=== PATIENT | female | born 1960 | race Caucasian/White ===

== ENCOUNTER 2020-07-07 09:47 | Outpatient (NON) | payer BC, SELFPAY ==
[2020-07-07 22:07] LABS: SARS-CoV-2 RNA PCR Positive
== END 2020-07-07 09:48 ==
PROVIDERS: PCP Family Medicine; Visit Provider Family Medicine
DX: U07.1 COVID-19 (principal)
CPT/HCPCS: 87635; C9803; U0003

== ENCOUNTER → 2020-07-31 15:10 | Outpatient (CLI) | payer BC, SELFPAY ==
--- NOTE | ~2020-07-31 | XR_ITS ---
EXAMINATION: XR chest 2V DATE: 07/31/2020 15:26 INDICATION: Acute bronchitis, unspecified. Cough. Shortness of breath. TECHNIQUE: Frontal and lateral views of the chest were obtained. COMPARISON: Chest 2 views 07/13/2019, chest CT 07/14/2019 FINDINGS: The chest demonstrates clear lungs without pneumonia, pleural effusion, or pneumothorax. Th e heart size is normal. IMPRESSION: 1. No acute cardiopulmonary disease. Reviewed, dictated and finalized at location A. 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
== END ==
PROVIDERS: PCP Family Medicine; Visit Provider Family Medicine
DX: J20.9 Acute bronchitis, unspecified (principal)
CPT/HCPCS: 71046

== ENCOUNTER 2021-01-10 07:35 | Outpatient (CLI) | payer BC, SELFPAY | END 2021-01-10 07:36 | disposition home or self-care (01) | PROVIDERS: PCP Family Medicine; Visit Provider Internal Medicine Gastroenterology | DX: R19.7 Diarrhea, unspecified (principal) | CPT/HCPCS: 87045; 87046; 87427 ==

== ENCOUNTER 2021-04-17 12:56 | Outpatient (CLI) | payer BC, SELFPAY ==
--- NOTE | ~2021-04-17 | US_ITS ---
EXAMINATION: US carotid duplex BI DATE: 04/17/2021 13:29 INDICATION: Unspecified visual disturbance. TECHNIQUE: Grayscale, color Doppler, and pulsed Doppler images of the cervical carotid arteries were obtained. The degree of vessel stenosis is placed in one of the following categories: normal, <50%, 5 0-69%, >=70% but less than near-occlusion, near-occlusion, or total occlusion. Note that percent sten osis relative to normal distal artery lumen diameter is indirectly measured from velocity measurement s as described by Topher, et al. Radiology 2003; 229:[id number]. COMPARISON: None. FINDINGS: RIGHT: The right common carotid artery (CCA) peak systolic velocity (PSV) is 86 cm/s. The right internal car otid artery (ICA) PSV is 85 cm/s. The right ICA end-diastolic velocity (EDV) is 36 cm/s. The right IC A/CCA PSV ratio is 1.0. Grayscale and color Doppler images yield an estimate of <50% diameter reducti on from plaque in the ICA. There is antegrade flow in the right vertebral artery. LEFT: The left CCA PSV is 97 cm/s. The left ICA PSV is 89 cm/s. The left ICA EDV is 28 cm/s. The left ICA/C CA PSV ratio is 0.9. Grayscale and color Doppler images yield an estimate of <50% diameter reduction from plaque in the ICA. There is antegrade flow in the left vertebral artery. IMPRESSION: 1. <50% stenosis in the right internal carotid artery. 2. <50% stenosis in the left internal carotid artery. Reviewed, dictated and finalized at location A.
== END 2021-04-17 12:57 | disposition home or self-care (01) ==
PROVIDERS: PCP Family Medicine; Visit Provider Family Medicine
DX: H53.9 Unspecified visual disturbance (principal); I65.23 Occlusion and stenosis of bilateral carotid arteries
CPT/HCPCS: 93880

== ENCOUNTER → 2022-02-16 00:04 | Outpatient (CLI) | payer BC, SELFPAY ==
[2022-02-16 11:44] LABS: SARS-CoV-2 RNA PCR Negative
== END ==
PROVIDERS: PCP Family Medicine; Visit Provider Nurse Practitioner Family
DX: R68.89 Other general symptoms and signs (principal); Z20.822 Contact with and (suspected) exposure to COVID-19
CPT/HCPCS: C9803; U0003; U0005

== ENCOUNTER 2022-04-25 06:55 | Outpatient (CLI) | payer BC, SELFPAY ==
--- NOTE | ~2022-04-25 | XR_ITS ---
EXAMINATION: XR hip BI 2V w AP pelvis DATE: 04/25/2022 07:14 INDICATION: Bilateral hip pain TECHNIQUE: AP view the pelvis and two views of each hip were obtained. COMPARISON: None. FINDINGS: Bone alignment is normal. There is no fracture. There is mild osteoarthritis of the hips. T he soft tissues are unremarkable. Phleboliths are noted in the pelvis. IMPRESSION: 1. Mild osteoarthritis of the hips. Reviewed, dictated and finalized at location A.
== END 2022-04-25 06:56 | disposition home or self-care (01) ==
PROVIDERS: PCP Family Medicine; Visit Provider Nurse Practitioner Family
DX: M16.0 Bilateral primary osteoarthritis of hip (principal)
CPT/HCPCS: 73521

== ENCOUNTER 2022-11-25 18:00 | Outpatient (RCR) | payer BC, SELFPAY | END 2022-11-28 15:51 | disposition home or self-care (01) | LOC: ANHCPREHAB 18:00 | PROVIDERS: PCP Family Medicine | DX: Z95.2 Presence of prosthetic heart valve (principal) | CPT/HCPCS: 93798 ==

== ENCOUNTER 2023-11-27 06:10 | Emergency (ER) | payer BC, SELFPAY ==
[2023-11-27] VITALS (7 sets, daily range): BP systolic 103–121; BP diastolic 68–97; PULSE 85–95; RESP 10–18; TEMP 36.6–37.2; O2SAT 95–100
--- NOTE | ~2023-11-27 | XR_ITS ---
Portable chest x-ray Comparison: 07/31/2020 Clinical History: Chest pressure Findings: Lungs are clear, without focal consolidation or pleural effusion. Cardiomediastinal silho uette is stable, status post interval placement. Bones and soft tissues are unremarkable. Impression: Clear lungs. Status post cardiac valve replacement. Reviewed, dictated and finalized at location . Impression: Clear lungs. Status post cardiac valve replacement.
--- NOTE | 2023-11-27 06:11 | ECG_ITS ---
Measurements Intervals [place] Rate: 85 P: 47 AK: 183 QRS: -26 QRSD: 97 T: -24 QT: 367 QTc: 438 Interpretive Statements SINUS RHYTHM VENTRICULAR PREMATURE COMPLEX DELAYED PRECORDIAL R/S TRANSITION BORDERLINE T WAVE ABNORMALITY- ANTEROLAT/INF LEADS BASELINE ARTIFACT- I, III, AVL, V2-V6 BORDERLINE ECG COMPARED TO ECG 07/14/2019 08:45:14 NO SIGNIFICANT CHANGES Electronically Signed On 11-27-2023 6:39:59 CDT by Ronaldo Lee D.O.
[2023-11-27 06:34] LABS: Basophils Absolute Auto 0.1 K/mm3 (0.0-0.1); Basophils Percent Auto 0.8 % (0.2-1.2); Eosinophils Absolute Auto 0.2 K/mm3 (0-0.3); Eosinophils Percent Auto 2.3 % (0-4.4); Hematocrit 45.2 % (37.0-47.0); Hemoglobin 14.7 g/dL (12.0-15.0); Immature Granulocyte Absolute 0.03 K/mm3 (0.00-0.031); Immature Granulocyte Percent A 0.3 % (0-0.5); Lymphocytes Absolute Auto 3.26 K/mm3 (0.9-3.2); Lymphocytes Percent Auto 31.9 % (18.3-44.2); Mean Corpuscular HGB Conc 32.5 g/dl (32-36); Mean Corpuscular Hemoglobin 29.6 pg (26-34); Mean Corpuscular Volume 91.1 fl (80-100); Mean Platelet Volume 11.2 fl (7.4-10.4); Monocytes Absolute Auto 0.5 K/mm3 (0.1-0.6); Monocytes Percent Auto 5.2 % (2.6-8.5); Neutrophils Absolute Auto 6.1 K/mm3 (1.3-6.7); Neutrophils Percent Auto 59.5 % (45.5-73.1); Platelet Count Result 294 k/mm3 (150-375); Red Blood Count 4.96 M/mm3 (4.2-5.4); Red Cell Distribution Width 12.3 % (11.5-14.5); White Blood Count 10.2 K/mm3 (4.5-10.0)
[2023-11-27] MEDS: ASPIRIN 81 MG CHEWABLE TABLET 324 MG PO (06:34)
[2023-11-27 06:44] LABS: Alanine Aminotransferase 15 U/L (6-35); Albumin Level 4.6 g/dL (3.5-5.1); Alkaline Phosphatase 92 U/L (38-126); Anion Gap 8 mmol/L (8-16); Aspartate Amino Transferase 25 U/L (14-36); Bilirubin,Total 0.7 mg/dL (0.2-1.3); Blood Urea Nitrogen 15 mg/dL (7-17); Calcium 10.4 mg/dL (8.4-10.2); Carbon Dioxide 29 mmol/L (22-30); Chloride 102 mmol/L (98-107); Estimated Glomerular Filt Rate > 60; Glucose 129 mg/dL (65-110); Lipase 55 U/L (23-300); Potassium 4.3 mmol/L (3.4-5.0); Sodium 139 mmol/L (137-145)
[2023-11-27 06:46] LABS: INR 0.9; Prothrombin Time 12.9 Seconds (11.1-14.7)
[2023-11-27 06:47] LABS: Partial Thromboplastin Time 29.4 Seconds (22.3-36.8)
[2023-11-27 06:59] LABS: Troponin I 0.511 ng/mL (0.000-0.034)
[2023-11-27] MEDS: HEPARIN SODIUM 5,000 UNITS/ML VIAL 4000 UNITS IV PUSH (07:23)
[2023-11-27] MEDS: NITROGLYCERIN SL 0.4 MG TABLET SUBLINGUAL (07:23)
--- NOTE | 2023-11-27 07:28 | ED.CHESTPAIN ---
HPI - Chest Pain General Chief Complaint: Chest Pain Stated Complaint: chest pain Time Seen by Provider: 11/27/23 07:00 Patient is a 63-year-old female who presents the ER with chest pain. Began yesterday at 10:00 p.m.. Burning in the chest. She then got home and went to bed. When she woke up at 5:45 a.m. she had worsening pain as she use the restroom. Central chest. No radiation. Associated with nausea and diaphoresis. No history of ischemic heart disease but does have history of talk of soup Andre broken heart syndrome. She has also had a mitral valve replacement. Symptoms worse with movement. Better with rest. Related Data Home Medications Medication Instructions Recorded Confirmed cholecalciferol (vitamin D3) 125 5,000 unit PO DAILY 07/14/19 11/12/23 mcg (5,000 unit) tablet alprazolam 0.25 mg tablet (Xanax) 0.25 mg PO TID PRN anxiety 10/15/22 11/12/23 torsemide 5 mg tablet 5 mg PO QAM 10/15/22 11/12/23 cyanocobalamin (vitamin B-12) 1,000 mcg PO DAILY 05/18/23 11/12/23 1,000 mcg tablet Allergies Allergy/AdvReac Type Severity Reaction Status Date / Time Doxycycline Allergy Intermediate urticaria Uncoded 01/04/21 08:53 Monistat Allergy Intermediate hives Uncoded 01/04/21 08:53 08/25/2020 Review of Systems Review of Systems: All systems reviewed & are unremarkable except as noted in HPI and below Constitutional: Constitutional: Denies chills, Denies fatigue and Denies fever(s) Comments: Diaphoresis ENT: Reports system reviewed and no additional complaints, except as documented Cardiovascular: Cardiovascular: Reports chest pain, Denies radiating jaw, neck or arm pain and Denies slow heart rate Respiratory: Respiratory: Reports no additional respiratory complaints Gastrointestinal: Gastrointestinal: Reports no additional gastrointestinal complaints Genitourinary: Genitourinary: Reports no additional female genitourinary complaints Musculoskeletal: Musculoskeletal: Reports no additional musculoskeletal complaints [facility] Past Medical History Medical History (Updated 11/27/23 @ 07:58 by Elvis Woodson MD) Acute bronchitis Adult BMI 28.0-28.9 kg/sq m Back pain Bilateral hip pain BMI 24.0-24.9, adult BMI 26.0-26.9,adult BMI 29.0-29.9,adult BMI 31.0-31.9,adult BMI 32.0-32.9,adult Breast cancer screening by mammogram Mammogram normal on 05/19/2023. Candidiasis of female genitalia Cardiomyopathy ejection fraction 55-60% on echocardiogram March,. Chronic anxiety Chronic bilateral low back pain without sciatica (05/13/23) Chronic depression Coronary artery disease involving [place] coronary artery of [place] heart without angina pectoris Cough COVID-19 (~07/2020) Diarrhea Encounter for wellness examination in adult GERD (gastroesophageal reflux disease) Hypertension, essential Insomnia Irritable bowel syndrome with diarrhea Microscopic hematuria trace amount of blood on UA on 08/22/2023. Mitral regurgitation [id number] mitral valve regurgitation on echocardiogram 02/23/2019. Mixed hyperlipidemia total cholesterol 148, triglycerides 92, HDL 53, LDL 77 on 12/13/2021. Cholesterol 175, triglycerides 217, HDL 46, LDL 98 on 05/13/2023. Myocardial infarction Obesity (BMI 30.0-34.9) Ocular migraine (~03/28/21) Overweight (BMI 25.0-29.9) Pharyngitis Rash FER negative, hs CRP normal at 0.7 on 12/13/2021. Takotsubo cardiomyopathy Type 2 diabetes mellitus with hyperglycemia (05/13/23) Fasting glucose 155 on 05/13/2023. fasting glucose 122 with hemoglobin A1c 5.7 with microalbumin ratio of 4 on 08/22/2023. UTI (urinary tract infection) Visual changes (~04/04/21) Vitamin B12 deficiency (05/13/23) level slightly low at 384 with goal greater than 400 with folic acid 8.4 and hemoglobin 13.3 and iron 64 on 05/13/2023. Vitamin B12 level normal at 707 on 08/22/2023 Surgical History Surgical History H/O cardiac catheterizat
[2023-11-27] MEDS: HEPARIN SOD/D5W 100 UNITS/ML 25,000 UNITS/250 ML BAG 9 UNITS IV CONT (07:38)
== END 2023-11-27 09:37 | disposition short-term general hospital (02) ==
PROVIDERS: Emergency Medicine; Emergency Provider Emergency Medicine; PCP Family Medicine
DX: I21.4 Non-ST elevation (NSTEMI) myocardial infarction (principal); I25.10 Atherosclerotic heart disease of native coronary artery without angina pectoris; I34.0 Nonrheumatic mitral (valve) insufficiency; I25.2 Old myocardial infarction; I51.81 Takotsubo syndrome; E11.9 Type 2 diabetes mellitus without complications; E78.2 Mixed hyperlipidemia; E66.9 Obesity, unspecified; Z68.30 Body mass index [BMI] 30.0-30.9, adult; E53.8 Deficiency of other specified B group vitamins; K21.9 Gastro-esophageal reflux disease without esophagitis; K58.0 Irritable bowel syndrome with diarrhea; F32.A Depression, unspecified; F41.9 Anxiety disorder, unspecified; Z95.2 Presence of prosthetic heart valve; Z86.16 Personal history of COVID-19; Z87.440 Personal history of urinary (tract) infections; Z87.891 Personal history of nicotine dependence; Z79.82 Long term (current) use of aspirin; Z79.85 Long-term (current) use of injectable non-insulin antidiabetic drugs; Z79.84 Long term (current) use of oral hypoglycemic drugs
CPT/HCPCS: 36415; 71045; 80053; 83690; 84484; 85025; 85610; 85730; 93005; 96365; 96366; 99291; A9270; J1644

== ENCOUNTER 2024-11-01 15:02 | Emergency (ER) | payer BC, SELFPAY ==
--- NOTE | ~2024-11-01 | XR_ITS ---
CHEST RADIOGRAPH, PA AND LATERAL CLINICAL HISTORY: cough . COMPARISON: 04/25/2022 TECHNIQUE: PA and lateral views of the chest. FINDINGS Sternal wires and mediastinal clips are identified, the wires are midline and intact. Annular ring in the mitral position. The remainder of the cardiomediastinal silhouette is otherwise unremarkable. The lungs are clear. IMPRESSION: No focal infiltrate or effusion. Reviewed, dictated and finalized at location A. TECHNICIAN
[2024-11-01 15:24] VITALS: BP 108/86; PULSE 90; RESP 18; TEMP 36.6; O2SAT 99
--- NOTE | 2024-11-01 15:26 | ECG_ITS ---
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
--- NOTE | 2024-11-01 15:26 | ED_ITS ---
HPI - URI/Sore Throat General Chief Complaint: Upper Respiratory Infection <Raquel Hopper PA-C - Last Filed: 11/01/24 15:27> Stated Complaint: flu <Raquel Hopper PA-C - Last Filed: 11/01/24 15:27> Time Seen by Provider: 11/01/24 21:57 <Raquel Hopper PA-C - Last Filed: 11/01/24 15:27> Focused HPI: 63-year-old female with the reported history of diabetes, CHF, takotsubo cardiomyopathy, mitral valve replacement presents to the emergency department for flu-like symptoms for over 1 week. Patient states she contacted her PCP at the onset of symptoms which include body aches fever, nausea, cough. She was prescribed the week of Tamiflu. States her symptoms have persisted so she contacted her PCP and was advised to come to the ER for evaluation. She is reporting lightheadedness, shortness of breath with exertion, cough. She denies chest pain or abdominal pain. States at times she coughs so hard a causes her to vomit. GENERAL: Well-appearing, well-nourished, and in no acute distress. HEAD: Normocephalic, atraumatic. CHEST: Clear to auscultation. ?No respiratory distress. HEART: Regular rate and rhythm.? NEURO: ?Alert and oriented x3. Patient screened in triage and initial orders placed.? ?Additional care and disposition to be based upon?diagnostic testing and treatment. <Raquel Hopper PA-C - Last Filed: 11/01/24 15:27> Focused HPI: 63-year-old female with the reported history of diabetes, CHF, takotsubo cardiomyopathy, mitral valve replacement presents to the emergency department for flu-like symptoms for over 1 week. Patient states she contacted her PCP at the onset of symptoms which include body aches fever, nausea, cough. She was prescribed the week of Tamiflu. States her symptoms have persisted so she contacted her PCP and was advised to come to the ER for evaluation. She is reporting lightheadedness, shortness of breath, wheezing, cough. She denies chest pain or abdominal pain. States at times she coughs so hard a causes her to vomit. GENERAL: Well-appearing, well-nourished, and in no acute distress. HEAD: Normocephalic, atraumatic. CHEST: Clear to auscultation. ?No respiratory distress. HEART: Regular rate and rhythm.? NEURO: ?Alert and oriented x3. Patient screened in triage and initial orders placed.? ?Additional care and disposition to be based upon?diagnostic testing and treatment. <Matilde Fonseca PA-C - Last Filed: 11/01/24 23:11> Related Data Home Medications: Home Medications ?Medication ?Instructions ?Recorded ?Confirmed ?Last Taken ?Type cholecalciferol (vitamin D3) 125 5,000 unit PO DAILY 07/14/19 06/09/24 Unknown History mcg (5,000 unit) tablet alprazolam 0.25 mg tablet (Xanax) 0.25 mg PO TID PRN anxiety 10/15/22 06/09/24 Unknown History cyanocobalamin (vitamin B-12) 1,000 mcg PO DAILY 05/18/23 06/09/24 Unknown History 1,000 mcg tablet metoprolol succinate 25 mg 25 mg PO DAILY 06/09/24 06/09/24 Unknown History tablet,extended release 24 hr sacubitril 49 mg-valsartan 51 mg 0.5 tablet PO BID 06/09/24 06/09/24 Unknown History tablet (Entresto) torsemide 10 mg tablet 10 mg PO QAM 06/09/24 06/09/24 Unknown History <Raquel Hopper PA-C - Last Filed: 11/01/24 15:27> Allergies/Adverse Reactions: Allergies Allergy/AdvReac Type Severity Reaction Status Date / Time Doxycycline Allergy Intermediate urticaria Uncoded 01/04/21 08:53 Monistat Allergy Intermediate hives Uncoded 01/04/21 08:53 08/25/2020 <Raquel Hopper PA-C - Last Filed: 11/01/24 15:27> Review of Systems 2 Review of Systems: All systems reviewed & are unremarkable except as noted in HPI and below <Matilde Fonseca PA-C - Last Filed: 11/01/24 23:11> PMFSH Past Medical History Medical History: Medical History (Updated 11/01/24 @ 22:33 by Matilde L. Fonseca, PA-C) Nausea and vomiting Influenza-like illness Congestive heart failure due to cardiomyopathy ejection fraction 55-60% on echocardiogram March,. Echo November, with ejection fraction 30% with severe hypokinesis of left ventricle. Repeat echo 01/13/2024 with ejection fraction 50-55%. BMI 29.0-29.9,adult Microscopic hematuria trace amount of blood on UA on 08/22/2023. Pharyngitis Vitamin B12 deficiency (05/13/23) level slightly low at 384 with goal greater than 400 with folic acid 8.4 and hemoglobin 13.3 and iron 64 on 05/13/2023. Vitamin B12 level normal at 707 on 08/22/2023 Type 2 diabetes mellitus with hyperglycemia (05/13/23) Fasting glucose 155 on 05/13/2023. fasting glucose 122 with hemoglobin A1c 5.7 with microalbumin ratio of 4 on 08/22/2023. Fasting glucose 89 with GFR 54 on 06/02/2024. BMI 32.0-32.9,adult BMI 31.0-31.9,adult Obesity (BMI 30.0-34.9) Encounter for wellness examination in adult Bilateral hip pain Adult BMI 28.0-28.9 kg/sq m Overweight (BMI 25.0-29.9) Rash FER negative, hs CRP normal at 0.7 on 12/13/2021. UTI (urinary tract infection) BMI 24.0-24.9, adult Ocular migraine (~03/28/21) Visual changes (~04/04/21) Irritable bowel syndrome with diarrhea BMI 26.0-26.9,adult Breast cancer screening by mammogram Mammogram normal on 05/19/2023. Back pain Candidiasis of female genitalia Insomnia Cardiomyopathy ejection fraction 55-60% on echocardiogram March,. Chronic anxiety Chronic bilateral low back pain without sciatica (05/13/23) Chronic depression Coronary artery disease involving [place] coronary artery of [place] heart without angina pectoris History of stent in the LAD. Cardiac catheterization on 11/27/2023 with widely patent stent in the LAD with no other significant coronary artery disease. Mixed hyperlipidemia total cholesterol 148, triglycerides 92, HDL 53, LDL 77 on 12/13/2021. Cholesterol 175, triglycerides 217, HDL 46, LDL 98 on 05/13/2023. Cholesterol 126, HDL 46, triglycerides 284, 20 LDL 47 with ratio of 2.3 on 05/24/2024. Acute bronchitis COVID-19 (~07/2020) DVT prophylaxis Takotsubo cardiomyopathy GERD (gastroesophageal reflux disease) Hypertension, essential Mitral regurgitation [id number] mitral valve regurgitation on echocardiogram 02/23/2019. Surgical valve repair Myocardial infarction <Raquel Hopper PA-C - Last Filed: 11/01/24 15:27> Surgical History Surgical History: Surgical History H/O cardiac catheterization <Raquel Hopper PA-C - Last Filed: 11/01/24 15:27> Family History Family History: Family History Father Diabetes mellitus Hypertension Grandparent Diabetes mellitus, Onset Age: 62 Family history of cardiovascular disease Family history of malignant neoplasm Family history of chronic obstructive pulmonary disease Family history of congestive heart failure Mother Hypertension Family history of cardiovascular disease <Raquel Hopper PA-C - Last Filed: 11/01/24 15:27> Social History Social History: Social History Smoking packs per day: 1 Smoking cigarettes per day: 20.0 Years smoked: 23 Smoking pack-years: 23.00 Smoking status: Former smoker Tobacco type: cigarettes Second hand tobacco smoke exposure: No Smoking end date: 09/08/02 Additional smoking assessment comments: quit in 2002 Alcohol intake: never Substance use: never Substance use type: does not use Lack of Transportation: No Lack of Food: Never True Current Housing: I Have Housing Concerned About Future Housing: No Difficulty Paying Gas/Electric Bills: No Difficulty Paying for Meds: No Currently Unemployed: No Education: High School Diploma/GED Difficulty w/ Childcare or Family Care: No Gender identity (if verbalized by the patient): Female Spiritual care concerns: No Agree to blood products: Yes <Raquel Hopper PA-C - Last Filed: 11/01/24 15:27> Exam 2 Narrative: GENERAL: Well-appearing, well-nourished, and in no acute distress. HEAD: Normocephalic, atraumatic. EYES: EOMI. ENT: Nares clear, no rhinorrhea or epistaxis. Mucous membranes moist. Oropharynx without tonsillar hypertrophy exudate or other lesions. Bilateral TMs pearly weber non-bulging NECK: Supple. No adenopathy or masses. CHEST: No respiratory distress. Diffuse expiratory wheezing. No rales or rhonchi HEART: Regular rate and rhythm. No murmur heard. Normal peripheral pulses. EXTREMITIES: Normal range of motion. No edema. SKIN: Warm, dry, no rash. NEURO: No focal deficits. Alert and oriented x3. PSYCH: Normal mood and affect <GILLIAN Rucker Last Filed: 11/01/24 23:11> Course Course Emergency Course: patient updated on her workup. Improvement with nebulizer treatment and steroid <GILLIAN Rucker Last Filed: 11/01/24 23:11> Vital Signs Vital signs: Vital Signs Temperature 97.9 F 11/01/24 15:24 Pulse Rate 90 11/01/24 15:24 Respiratory Rate 18 11/01/24 15:24 Blood Pressure 108/86 11/01/24 15:24 Pulse Oximetry 99 11/01/24 15:24 Temperature 97.9 F 11/01/24 15:24 Pulse Rate 85 11/01/24 22:10 Respiratory Rate 24 H 11/01/24 22:39 Blood Pressure 109/76 11/01/24 22:06 Pulse Oximetry 98 11/01/24 22:06 Oxygen Delivery Room Air 11/01/24 22:07 <GILLIAN Martinez Last Filed: 11/01/24 15:27> Vital Signs Temperature 97.9 F 11/01/24 15:24 Pulse Rate 90 11/01/24 15:24 Respiratory Rate 18 11/01/24 15:24 Blood Pressure 108/86 11/01/24 15:24 Pulse Oximetry 99 11/01/24 15:24 Temperature 97.9 F 11/01/24 15:24 Pulse Rate 85 11/01/24 22:10 Respiratory Rate 24 H 11/01/24 22:39 Blood Pressure 109/76 11/01/24 22:06 Pulse Oximetry 98 11/01/24 22:06 Oxygen Delivery Room Air 11/01/24 22:07 <GILLIAN Rucker Last Filed: 11/01/24 23:11> MDM - URI/Sore Throat MDM Narrative Medical decision making narrative: Patient presents to the emergency department for continued cold symptoms, generalized weakness. Patient is afebrile nontoxic appearing. Her vitals are stable. Expiratory wheezing upon arrival. Given nebulizer treatment with improvement. CBC and metabolic panel without concerning findings. EKG without concerning changes and baseline troponin is negative. BNP is not concerningly elevated. D-dimer is not elevated. Influenza, RSV and COVID screens are negative. Chest x-ray without acute cardiopulmonary abnormality urine possible evidence of infection. This will be sent for culture. Patient will be started on oral antibiotics. patient updated on her workup, agrees with plan of care. Will be continued on oral steroids, given an albuterol inhaler. She is to follow up with primary provider. She was given warnings to return the ER <Matilde Fonseca PA-C - Last Filed: 11/01/24 23:11> Differential Diagnosis Differential diagnosis: Likely upper respiratory infection, viral infection, bronchitis, influenza and other (uti) <Matilde Fonseca PA-C - Last Filed: 11/01/24 23:11> Lab Data Attestation: I reviewed the patient's lab results. <Matilde Fonseca PA-C - Last Filed: 11/01/24 23:11> Result diagrams: 11/01/24 16:11 11/01/24 16:11 <Raquel Hopper PA-C - Last Filed: 11/01/24 15:27> Labs: Lab Results 11/01/24 11/01/24 Range/Units 16:11 21:21 WBC 8.6 (4.5-10.0) K/mm3 RBC 4.22 (4.2-5.4) M/mm3 Hgb 12.4 (12.0-15.0) g/dL Hct 37.3 (37.0-47.0) % MCV 88.4 (80-100) fl MCH 29.4 (26-34) pg MCHC 33.2 (32-36) g/dl RDW 12.8 (11.5-14.5) % Plt Count 315 (150-375) k/mm3 MPV 11.1 H (7.4-10.4) fl Immature Gran % (Auto) 0.1 (0-0.5) % Neut % (Auto) 60.5 (45.5-73.1) % Lymph % (Auto) 29.9 (18.3-44.2) % [place] % (Auto) 7.1 (2.6-8.5) % Eos % (Auto) 1.9 (0-4.4) % Baso % (Auto) 0.5 (0.2-1.2) % Lymph # (Auto) 2.57 (0.9-3.2) K/mm3 [place] # (Auto) 0.6 (0.1-0.6) K/mm3 Eos # (Auto) 0.2 (0-0.3) K/mm3 Baso # (Auto) 0.0 (0.0-0.1) K/mm3 Abs Immat Gran (auto) 0.01 (0.00-0.031) K/mm3 Absolute Neuts (auto) 5.2 (1.3-6.7) K/mm3 Absolute Nucleated RBC 0.000 (0.0-0.012) K/mm3 Nucleated RBC % 0.0 (0.0-0.2) % PT 13.9 (11.1-14.7) Seconds INR 1.0 APTT 27.2 (22.3-36.8) Seconds D-Dimer < 0.27 (<0.48) ug/mL Sodium 140 (137-145) mmol/L Potassium 3.7 (3.4-5.0) mmol/L Chloride 104 (98-107) mmol/L Carbon Dioxide 26 (22-30) mmol/L Anion Gap 10 (4-12) mmol/L BUN 20 H (7-17) mg/dL Creatinine 0.84 (0.7-1.0) mg/dL Estim Creat Clear Calc 64 ml/min Estimated GFR > 60 (59 - ) Glucose 93 (65-110) mg/dL Calcium 9.4 (8.4-10.2) mg/dL Total Bilirubin 0.6 (0.2-1.3) mg/dL AST 23 (14-36) U/L ALT 20 (6-35) U/L Alkaline Phosphatase 74 (38-126) U/L Troponin I < 0.012 (0.000-0.034) ng/mL NT-Pro-B Natriuret Pep 280 H (19.9-100) pg/mL Total Protein 7.0 (6.3-8.2) g/dL Albumin 4.1 (3.5-5.1) g/dL Lipase 57 (23-300) U/L Urine Color Yellow (Yellow) Urine Appearance Clear (Clear) Urine pH 5.0 (5.0-9.0) Ur Specific [place] 1.022 (1.001-1.035) Urine Protein Trace (Negative) mg/dL Urine Glucose (UA) Negative (Negative) mg/dL Urine Ketones 2+ H (Negative) mg/dL Ur Blood (Man) Trace (Negative) Urine Nitrate Positive H (Negative) Urine Bilirubin Negative (Negative) Urine Urobilinogen 0.2 (<2.0) mg/dL Leukocyte Esterase Rfl 2+ H (Negative) THI/UL Urine RBC 0-2 (0-2) /hpf Urine WBC 51-100 H (0-3) /hpf Ur Squamous Epith Cells Occasional (Few) /hpf Urine Bacteria 2+ H /hpf Urine Casts 0-2 Influenza A (RT-PCR) Negative (Negative) Influenza B (RT-PCR) Negative (Negative) RSV (RT-PCR) Negative (Negative) SARS-CoV-2 RNA (RT-PCR) Negative (Negative) <Raquel Hopper PA-C - Last Filed: 11/01/24 15:27> Lab Results 11/01/24 11/01/24 Range/Units 16:11 21:21 WBC 8.6 (4.5-10.0) K/mm3 RBC 4.22 (4.2-5.4) M/mm3 Hgb 12.4 (12.0-15.0) g/dL Hct 37.3 (37.0-47.0) % MCV 88.4 (80-100) fl MCH 29.4 (26-34) pg MCHC 33.2 (32-36) g/dl RDW 12.8 (11.5-14.5) % Plt Count 315 (150-375) k/mm3 MPV 11.1 H (7.4-10.4) fl Immature Gran % (Auto) 0.1 (0-0.5) % Neut % (Auto) 60.5 (45.5-73.1) % Lymph % (Auto) 29.9 (18.3-44.2) % [place] % (Auto) 7.1 (2.6-8.5) % Eos % (Auto) 1.9 (0-4.4) % Baso % (Auto) 0.5 (0.2-1.2) % Lymph # (Auto) 2.57 (0.9-3.2) K/mm3 [place] # (Auto) 0.6 (0.1-0.6) K/mm3 Eos # (Auto) 0.2 (0-0.3) K/mm3 Baso # (Auto) 0.0 (0.0-0.1) K/mm3 Abs Immat Gran (auto) 0.01 (0.00-0.031) K/mm3 Absolute Neuts (auto) 5.2 (1.3-6.7) K/mm3 Absolute Nucleated RBC 0.000 (0.0-0.012) K/mm3 Nucleated RBC % 0.0 (0.0-0.2) % PT 13.9 (11.1-14.7) Seconds INR 1.0 APTT 27.2 (22.3-36.8) Seconds D-Dimer < 0.27 (<0.48) ug/mL Sodium 140 (137-145) mmol/L Potassium 3.7 (3.4-5.0) mmol/L Chloride 104 (98-107) mmol/L Carbon Dioxide 26 (22-30) mmol/L Anion Gap 10 (4-12) mmol/L BUN 20 H (7-17) mg/dL Creatinine 0.84 (0.7-1.0) mg/dL Estim Creat Clear Calc 64 ml/min Estimated GFR > 60 (59 - ) Glucose 93 (65-110) mg/dL Calcium 9.4 (8.4-10.2) mg/dL Total Bilirubin 0.6 (0.2-1.3) mg/dL AST 23 (14-36) U/L ALT 20 (6-35) U/L Alkaline Phosphatase 74 (38-126) U/L Troponin I < 0.012 (0.000-0.034) ng/mL NT-Pro-B Natriuret Pep 280 H (19.9-100) pg/mL Total Protein 7.0 (6.3-8.2) g/dL Albumin 4.1 (3.5-5.1) g/dL Lipase 57 (23-300) U/L Urine Color Yellow (Yellow) Urine Appearance Clear (Clear) Urine pH 5.0 (5.0-9.0) Ur Specific [place] 1.022 (1.001-1.035) Urine Protein Trace (Negative) mg/dL Urine Glucose (UA) Negative (Negative) mg/dL Urine Ketones 2+ H (Negative) mg/dL Ur Blood (Man) Trace (Negative) Urine Nitrate Positive H (Negative) Urine Bilirubin Negative (Negative) Urine Urobilinogen 0.2 (<2.0) mg/dL Leukocyte Esterase Rfl 2+ H (Negative) THI/UL Urine RBC 0-2 (0-2) /hpf Urine WBC 51-100 H (0-3) /hpf Ur Squamous Epith Cells Occasional (Few) /hpf Urine Bacteria 2+ H /hpf Urine Casts 0-2 Influenza A (RT-PCR) Negative (Negative) Influenza B (RT-PCR) Negative (Negative) RSV (RT-PCR) Negative (Negative) SARS-CoV-2 RNA (RT-PCR) Negative (Negative) <Matilde Fonseca PA-C - Last Filed: 11/01/24 23:11> Imaging Data Radiologist's impression: ITS Impressions Chest X-Ray 11/01/24 15:46 IMPRESSION: No focal infiltrate or effusion. <Matilde Fonseca PA-C - Last Filed: 11/01/24 23:11> ECG Data EKG #1: ECG completion date: 11/01/24 <Matilde Fonseca PA-C - Last Filed: 11/01/24 23:11> EKG Interpretation: normal rate, sinus rhythm, no ST changes and normal QT <Matilde Fonseca PA-C - Last Filed: 11/01/24 23:11> Critical Care Time Critical Care Time Critical Care Time: No <Matilde Fonseca PA-C - Last Filed: 11/01/24 23:11> Discharge Plan Discharge Clinical Impression: Acute UTI Acute bronchitis Qualifiers: Bronchitis organism: unspecified organism Qualified Code(s): J20.9 - Acute bronchitis, unspecified <GILLIAN Martienz Last Filed: 11/01/24 15:27> Patient Disposition: Home, Self-Care <GILLIAN Martinez Last Filed: 11/01/24 15:27> Condition: Improved <GILLIAN Martinez Last Filed: 11/01/24 15:27> Instructions: Antibiotic Form, Urinary Tract Infection in Women (ED), Acute Bronchitis (ED) <GILLIAN Martinez Last Filed: 11/01/24 15:27> Additional Instructions: Return to the emergency department for worsening symptoms, or any other concerns Remain well-hydrated, get plenty of rest. Take Tylenol or Motrin [id number] for pain as needed. Flonase for nasal congestion. Zyrtec for runny nose. Albuterol 2 puffs every 4-6 hours as needed for shortness of breath or wheezing. Continue steroid as prescribed. Continue oral antibiotic as prescribed Follow up with your primary care doctor <GILLIAN Martinez Last Filed: 11/01/24 15:27> Patient Language: Georgian <GILLIAN Martinez Last Filed: 11/01/24 15:27> Prescriptions: New albuterol sulfate [Ventolin HFA] 90 mcg/actuation HFA aerosol inhaler 2 puff inhalation QID PRN (Reason: shortness of breath or wheezing) Qty: 8.5 0RF prednisone 20 mg tablet 40 mg PO DAILY 4 Days Qty: 8 0RF cephalexin 500 mg capsule 500 mg PO Q12H 5 Days Qty: 10 0RF No Action alprazolam [Xanax] 0.25 mg tablet 0.25 mg PO TID PRN (Reason: anxiety) torsemide 10 mg tablet 10 mg PO QAM Patient Comments: prescribed by pad machine operator metoprolol succinate 25 mg tablet extended release 24 hr 25 mg PO DAILY Entresto 49-51 mg tablet 0.5 tablet PO BID Patient Comments: treated by pad machine operator with restart on 06/09/2024 after 3 weeks off. cholecalciferol (vitamin D3) 5,000 unit Tablet 5,000 unit PO DAILY aspirin [Adult Aspirin Regimen] 81 mg tablet,delayed release (DR/EC) 81 mg PO DAILY Qty: 90 3RF cyanocobalamin (vitamin B-12) 1,000 mcg tablet 1,000 mcg PO DAILY Ozempic 0.25 mg or 0.5 mg (2 mg/3 mL) pen injector 0.5 mg subcut WEEKLY Qty: 3 11RF Rx Instructions: sample started in office 11/12/2023 metformin 500 mg tablet 500 mg PO BIDWMEAL Qty: 180 3RF bupropion HCl [Wellbutrin XL] 150 mg tablet extended release 24 hr 150 mg PO QAM Qty: 90 3RF escitalopram oxalate [Lexapro] 10 mg tablet 10 mg PO . q.h.s. Qty: 90 3RF rosuvastatin 5 mg tablet 5 mg PO DAILY Qty: 90 3RF benzonatate 200 mg capsule 200 mg PO TID PRN (Reason: cough) Qty: 30 0RF ondansetron 4 mg tablet,disintegrating 4 mg PO QID PRN (Reason: nausea and vomiting) Qty: 14 0RF <Raquel Hopper PA-C - Last Filed: 11/01/24 15:27> Follow-up/Referrals: Peter Arthur MD [Primary Care Provider] - <Raquel Hopper PA-C - Last Filed: 11/01/24 15:27>
[2024-11-01 16:20] LABS: Basophils Percent Auto 0.5 % (0.2-1.2); Eosinophils Absolute Auto 0.2 K/mm3 (0-0.3); Eosinophils Percent Auto 1.9 % (0-4.4); Hematocrit 37.3 % (37.0-47.0); Hemoglobin 12.4 g/dL (12.0-15.0); Immature Granulocyte Absolute 0.01 K/mm3 (0.00-0.031); Immature Granulocyte Percent A 0.1 % (0-0.5); Lymphocytes Absolute Auto 2.57 K/mm3 (0.9-3.2); Lymphocytes Percent Auto 29.9 % (18.3-44.2); Mean Corpuscular HGB Conc 33.2 g/dl (32-36); Mean Corpuscular Hemoglobin 29.4 pg (26-34); Mean Corpuscular Volume 88.4 fl (80-100); Mean Platelet Volume 11.1 fl (7.4-10.4); Monocytes Absolute Auto 0.6 K/mm3 (0.1-0.6); Monocytes Percent Auto 7.1 % (2.6-8.5); Neutrophils Absolute Auto 5.2 K/mm3 (1.3-6.7); Neutrophils Percent Auto 60.5 % (45.5-73.1); Platelet Count Result 315 k/mm3 (150-375); Red Blood Count 4.22 M/mm3 (4.2-5.4); Red Cell Distribution Width 12.8 % (11.5-14.5); White Blood Count 8.6 K/mm3 (4.5-10.0)
[2024-11-01 16:33] LABS: Prothrombin Time 13.9 Seconds (11.1-14.7)
[2024-11-01 16:34] LABS: Partial Thromboplastin Time 27.2 Seconds (22.3-36.8)
[2024-11-01 16:46] LABS: D Dimer < 0.27 ug/mL (<0.48)
[2024-11-01 16:55] LABS: Influenza A QL RT-PCR Negative (Negative); Influenza B QL RT-PCR Negative (Negative); RSV RNA, RT-PCR Negative (Negative); SARS-CoV-2 RNA PCR Negative (Negative)
[2024-11-01 17:16] LABS: Alanine Aminotransferase 20 U/L (6-35); Albumin Level 4.1 g/dL (3.5-5.1); Alkaline Phosphatase 74 U/L (38-126); Anion Gap 10 mmol/L (4-12); Aspartate Amino Transferase 23 U/L (14-36); Bilirubin,Total 0.6 mg/dL (0.2-1.3); Blood Urea Nitrogen 20 mg/dL (7-17); Calcium 9.4 mg/dL (8.4-10.2); Carbon Dioxide 26 mmol/L (22-30); Chloride 104 mmol/L (98-107); Estimated CRCL calculation 64 ml/min; Estimated Glomerular Filt Rate > 60; Glucose 93 mg/dL (65-110); Lipase 57 U/L (23-300); Potassium 3.7 mmol/L (3.4-5.0); Sodium 140 mmol/L (137-145)
--- OUTSIDE RECORDS SUMMARY | 2024-11-01 17:35 | XMS_ITS | Encounter Summary ---
Author Organization [facility] Address [address] [place] [address] Care Team Providers Care Marine Rigger Name Role Phone Peter Arthur MD Primary Care Provider Encounter Details Date Type Department Care Team (Late st Contact Info) Description 10/15/2024 Results Follow-Up [facility] - [address] [facility] [address] [id number] [facility] [address] [place] [address] [place] [address] [place] [address] TSH REFLEXIVE, COMPREHENSIVE METABOLIC PANEL, MAGNESIUM LEVEL, CBC WITHOUT DIFFERENTIAL Social History Tobacco Use Types Packs/Day Years Used Date Smoking Tobacco: Former Cigarettes 1 20 0 09/08/1988 - 09/08/2008 Smokeless Tobacco: Never Alcohol Use Standard Drinks/Week Comments Not Currently 0 (1 standard drink = 0.6 oz pur e alcohol) Feeling Safe Answer Date Recorded Are you in a relationship wi th someone who hurts you emotionally and/or physically? No 11/27/2023 Food Insecurity Answer Date Recorded Social/Environmental Concerns No concerns Transportation Needs Answer Date Record ed Social/Environmental Concerns No concerns Housing Stability Answer Date Recorded Social/Environmental Concerns No concerns Utility Needs Answer Date Recorded Social/Environmental Concerns No concerns Comments No Sex and Gender Information Value Date Recorded Sex Assigned at Not on file Legal Sex Female 12:23 PM CDT Gender Identity Not on file Sexual Orientation Not on file documented as of this encounter Plan of Treatment Upcoming Encounters Date Type Department Care Team (Late st Contact Info) Description 11/03/2024 10:15 AM PUBLICITY AGENT Appointment [facility] Testing [id number] [place] [address] [place] [address] [place] [address] 12/20/2024 10:30 AM CDT Office Visit [facility] - [address] [place] [address] Cindy Hill APRN [address] [place] [address] documented as of this encounter Visit Diagnoses Not on filedocumented in this encounter Care Teams Marine Rigger Relationship Specialty Start Date End Date Peter Arthur MD [facility] [place] [id number] PCP - General Family Practice 05/25/19 documented as of this encounter
--- OUTSIDE RECORDS SUMMARY | 2024-11-01 17:35 | XMS_ITS | Patient Health Summary ---
Author Organization [facility] Address [address] [place] [address] Care Team Providers Care Allied Health Teacher Name Role Phone Peter Arthur MD Primary Care Provider [phone] Note from [facility],non-owned Affiliates and Associated Physician Practices is amultiple site organization consisting of ambulatory clinics and hospital sitesin [place], [place], [place] and [place]. This disclosure is being madepursuant to the Care Everywhere program and may not contain all information available regarding this patient. Last updated 18.[facility] Allergies No known active allergies Medications * Be aware that medications may not be up to date on this document. Alwaysverify current medications with the patient. * BUPROPION HBR ER PO * LISINOPRIL PO * furosemide (LASIX) 20 MG tablet Take 20 mg by mouth once daily * aspirin (ASPIRIN) 81 MG chew tablet Take 81 mg by mouth once daily * clopidogrel (PLAVIX) 75 MG tablet Take 75 mg by mouth once daily * carvedilol (COREG) 6.25 MG tablet Take 6.25 mg by mouth 2 times daily with morning and evening meal * atorvastatin (LIPITOR) 80 MG tablet Take 80 mg by mouth at bedtime * omeprazole (PRILOSEC) 40 MG capsule Take 40 mg by mouth daily before breakfast * Zlbbqilrq-Gilepii-Vdatb Acid (MAGNEBIND 400 PO) * Cholecalciferol (VITAMIN D PO) Social History Tobacco Use Types Packs/Day Years Used Date Smoking Tobacco: Never Smokeless Tobacco: Never Sex and Gender Information Value Date Recorded Sex Assigned at Not on file Gender Identity Not on file Sexual Orientation Not on file Last Filed Vital Signs Vital Sign Reading Time Taken Comments Blood Pressure 120/80 03/28/2019 12:19 PM CDT Pulse 68 03/28/2019 12:19 PM CDT Temperature 37.1 C (98.7 F) 03/28/2019 12:19 PM CDT Respiratory Rate - - Oxygen Saturation - - Inhaled Oxygen Concentration - - Weight 93 kg (205 lb) 03/28/2019 12:19 PM CDT Height 175.3 cm (5' 9 ) 03/28/2019 12:19 PM CDT Body Mass Index 30.27 03/28/2019 12:19 PM CDT Procedures * CULTURE URINE(Performed 03/28/2019) Performed for Acute cystitis with hematuria * URINALYSIS AUTO - POINT OF CARE (AMB) ST[facility](Performed 03/28/2019) Performed for Acute cystitis with hematuria Results * (ABNORMAL) CULTURE URINE (03/28/2019 12:26 PM CDT) Urine Culture Routine Final report(A) [facility] ACCOUNT BILL Result 1 Escherichia coli(A) [facility] ACCOUNT BILL Comment: Greater than 100,000 colony forming units per mL Cefazolin <=4 ug/mL Cefazolin with an RILEY <=16 predicts susceptibility to the oral agents cefaclor, cefdinir, cefpodoxime, cefprozil, cefuroxime, cephalexin, and loracarbef when used for therapy of uncomplicated urinary tract infections due to E. coli, Klebsiella pneumoniae, and Proteus mirabilis. Antimicrobial Susceptibility [facility] ACCOUNT BILL Comment: S = Susceptible; I = Intermediate; R = Resistant P = Positive; N = Negative MICS are expressed in micrograms per mL Antibiotic RSLT#1 RSLT#2 RSLT#3 RSLT#4 Amoxicillin/Clavulanic Acid S Ampicillin S Cefepime S Ceftriaxone S Cefuroxime S Ciprofloxacin S Ertapenem S Gentamicin S Imipenem S Levofloxacin S Meropenem S Nitrofurantoin S Piperacillin/Tazobactam S Tetracycline S Tobramycin S Trimethoprim/Sulfa S Urine URINE SPECIMEN OBTAINED BY CLEAN CATCH PROCEDURE / Unknown 03/28/2019 12:26 PM CDT 03/29/2019 Narrative Resulting Agency Comment Lab Testing performed at: [facility] [address] [id number] Stephanie Schultz OUTREACH WORK[facility] - MICROBIOL OGY ORDERABLES [facility] ACCOUNT BILL [address] [place] [address] * URINALYSIS AUTO - POINT OF CARE (AMB) [facility] (03/28/2019) Clarity UA POCT cloudy Color UA POCT straw Leukocyte UA 125 Negative Nitrite UA POCT pos Negative Urobilinogen UA 0.2 0.1 - 1.0 Protein UA POCT 15 Negative pH UA 5.0 5.0 - 8.0 pH units Blood UA +++ Negative Specific [place] UA POCT 1.015 1.002 - 1.030 Ketone UA neg Negative Bilirubin UA POCT neg Negative Glucose UA neg Negative Expiration Date [id number] Lot # [id number] QC Verified Yes Yes Urine URINE / Unknown 03/28/2019 Stephanie Lorna Schultz [facility] - POINT OF CARE ORDERABLES Care Teams Allied Health Teacher Relationship Specialty Start Date End Date Peter Arthur MD PCP - General Family Medicine 03/28/19
--- OUTSIDE RECORDS SUMMARY | 2024-11-01 17:35 | XMS_ITS | Clinical Summary ---
Author Organization [facility] Address [address] [place] [address] Care Team Providers Care Practice Physician Name Role Phone Peter Arthur MD Primary Care Provider [phone] Source Comments [facility],non-owned Affiliates and Associated Physician Practices is amultiple site organization consisting of ambulatory clinics and hospital sitesin [place], [place], [place] and [place]. This disclosure is being madepursuant to the Care Everywhere program and may not contain all information available regarding this patient. Last updated 18.[facility] Allergies No known active allergies Medications * Be aware that medications may not be up to date on this document. Alwaysverify current medications with the patient. Medication Sig Dispensed Refills Start Date End Date Status BUPROPION HBR ER PO Activ e LISINOPRIL PO Active furosemide (LASIX) 20 MG tablet Take 20 mg by mouth once daily Active aspirin (ASPIRIN) 81 MG chew tablet Take 81 mg by mouth once daily Active clopidogrel (PLAVIX) 75 MG tablet Take 75 mg by mouth once daily Active carvedilol (COREG) 6.25 MG tablet Take 6.25 mg by mouth 2 times daily with morning and evening meal Active atorvastatin (LIPITOR) 80 MG tablet Take 80 mg by mouth at bedtime Active omeprazole (PRILOSEC) 40 MG capsule Take 40 mg by mouth daily before breakfast Active Vcxyrxqcx-Gjdudmh-Bsm ic Acid (MAGNEBIND 400 PO) Active Cholecalciferol (VITAMIN D PO) Active Social History Tobacco Use Types Packs/Day Years [...] Mass Index 30.27 03/28/2019 12:19 PM CDT Plan of Treatment Health Maintenance Due Date Last Done Comments COLOGUARD (AGES 45-75) - COL ON CA SCREENING 1962 COLON MONITORING 1962 COLONOSCOPY - COLON CA SCREENING 1962 CT COLONOGRAPHY - COLON CA SCREENING 1962 Colorectal Cancer Screening 1962 FIT - COLON CA SCREENING 1962 FLEX SIG - COLON CA SCREENING 1962 MAMMOGRAM 1962 PAP SMEAR 1962 HIV SCREENING 1977 HEPATITIS C SCREENING 10/31/1980 DTAP/TDAP/TD VACCINES (1 - Tdap) 1981 PNEUMOCOCCAL VACCINE 50+ (1 of 1 - PCV) 2012 ZOSTER VACCINE (1 of 2) 2012 SCREENING FOR DIABETES 03/28/2019 COVID-19 VACCINE ( - 2023-2 5 season) 2024 INFLUENZA VACCINE (#1) 2024 DEPRESSION SCREENING 09/08/2024 Respiratory Syncytial Virus (RSV) Vaccine Pt: or over 60 yrs (1 - 1-dose 75+ series) 2037 HEPATITIS B VACCINE Aged Out No longe r eligible based on patient's age to complete this topic HIB VACCINE Aged Out No longer eligi ble based on patient's age to complete this topic HPV VACCINE Aged Out No longer eligi ble based on patient's age to complete this topic MENINGOCOCCAL (Group B) VACCINE Aged Out No longer eligible based on patient's age to complete this topic MENINGOCOCCAL VACCINE Aged Out No denise nilam eligible based on patient's age to complete this topic PNEUMOCOCCAL VACCINE Aged Out No long er eligible based on patient's age to complete this topic Care Teams Practice Physician Relationship Specialty Start Date End Date Peter Arthur MD PCP - General Family Medicine 03/28/19
--- OUTSIDE RECORDS SUMMARY | 2024-11-01 17:35 | XMS_ITS | Clinical Summary ---
Author Organization [facility] [address] [place] [address] [address] [place] [address] Care Team Providers Care Site Physician Name Role Phone Peter Arthur MD Primary Care Provider [phone] Allergies Active Allergy Reactions Criticality Noted Date Comments Hydrocodone Bitartrate Dizziness 09/23/2016 Medications ALPRAZolam (XANAX) 0.5 mg tablet Take 0.5 mg by mouth 1 time daily as needed. 7 Active aspirin (ELVA CHEWABLE) 81 mg Tablet, Chewable Take 81 mg by mouth daily. Active rosuvastatin (CRESTOR) 5 mg tablet Take 5 mg by mouth daily at bedtime. Active cholecalciferol, vitamin D3, 5,000 unit Take 5,000 Units by mouth daily. Active escitalopram oxalate (LEXAPRO) 10 mg tablet Take 10 mg by mouth daily at bedtime. Active buPROPion HCL (WELLBUTRIN XL) 150 mg Extended Release 24 hour tablet Take 150 mg by mouth daily in the morning. Active Ozempic 0.25 mg or 0.5 mg (2 mg/3 mL) Pen Injector INJECT 0.5 MG UNDER THE SKIN ONCE WEEKLY 4 Active metFORMIN (GLUCOPHAGE) 500 mg tablet 4 Active metoprolol succinate (TOPROL XL) 25 mg Extended Release 24 hour tabletIndications:D ilated cardiomyopathy (CMS/HCC),Chronic systolic CHF (congestive heart failure) (CMS/HCC),Coronary artery disease involving galena coronary artery of galena heart without angina pectoris,Essential hypertension,Mixed hyperlipidemia Take 1 Tablet (25 mg) by mouth daily. 90 Tablet 3 4 Active magnesium oxide (MAG-OX) 400 mg (241.3 mg magnesium) tabletIndications:D ilated cardiomyopathy (CMS/HCC),Chronic systolic CHF (congestive heart failure) (CMS/HCC),Coronary artery disease involving galena coronary artery of galena heart without angina pectoris,Essential hypertension,Mixed hyperlipidemia Take 1 Tablet (400 mg) by mouth daily at bedtime. 90 Tablet 3 4 Active sacubitriL-valsarta n (ENTRESTO) 49-51 mg TabletIndications:E ssential hypertension,Mendes ry artery disease involving galena coronary artery of galena heart without angina pectoris,Dilated cardiomyopathy (CMS/HCC),Chronic systolic CHF (congestive heart failure) (CMS/HCC),Mixed hyperlipidemia Take 1 Tablet by mouth 2 times daily. 180 Tablet 3 4 Active Active Problems Patient Care Coordination No te Formatting of this note migh t be different from the original. Coverage Analyst- Luisito Fernandez MD [facility] - Heart and Vascular Office Problem Noted Date Diagnosed Date NSTEMI (non-ST elevated myocardial infarction) 0 11/27/2023 Chest pain 11/27/2023 Stress-induced cardiomyopathy 11/27/2023 Diabetes mellitus type II, non insulin dependent 11/27/2023 Mood disorder 11/27/2023 Class 1 obesity with serious comorbidity and body mass index (BMI) of 31.0 to 31.9 in adult 08/22/2022 Chronic diastolic congestive heart failure 08/22 Thrombocytopenia 08/18/2022 S/P MVR (mitral valve repair) 08/16/2022 Nonrheumatic mitral valve regurgitation 08/16/20 22 On mechanically assisted ventilation 08/16/2022 Coronary artery disease invo lving galena coronary artery of galena heart without angina pectoris 11/03/2020 Essential hypertension 11/03/2020 High cholesterol 11/03/2020 Encounters Date Type Department Care Team Description 10/26/2024 External Device Data STL ABSTRACTION Provider, Abstract 10/15/2024 Results Follow-Up [facility] - [address] [facility] [address] [address] [facility] [address] [place] [address] Luisito Fernandez MD TSH REFLEXIVE, COMPREHENSIVE METABOLIC PANEL, MAGNESIUM LEVEL, CBC WITHOUT DIFFERENTIAL 10/12/2024 4:00 PM SENIOR SOFTWARE TEST ENGINEER Office Visit [facility] - [address] [place] [address] Luisito Fernandez MD Essential hypertension (Primary Dx); Coronary artery disease involving galena coronary artery of galena heart without angina pectoris; Mixed hyperlipidemia; S/P MVR (mitral valve repair) 09/06/2024 Telephone [facility] - [address] [facility] [address] [place] [id number] Luisito Fernandez MD pt call 08/10/2024 External Device Data STL ABSTRACTION Provider, Abstract from Last 3 Months Immunizations Immunization Administration Dates Next Due ([employer] ANATOLY)(12 YR UP PRIMA RY SERIES) COVID-19 VACCINE - EMERGENCY USE AUTHORIZATION, MRNA, ANATOLY(PF) 30 MCG/0.3 ML IM SUSP 06/23/2022 Influenza Seasonal Unspecified Formulation IM Family History Medical History Relation Name Comments Diabetes Father High Cholesterol Father Hypertension Father Heart Attack Mother Heart Surgery Mother High Cholesterol Mother Hypertension Mother Relation Name Status Comments Father Alive Mother Alive Social History Tobacco Use Types Packs/Day Years Used Date Smoking Tobacco: Former Cigarettes 1 20 0 09/08/1988 - 09/08/2008 Smokeless Tobacco: Never Tobacco Cessation:Counseling Given: Not Answered Alcohol Use Standard Drinks/Week Comments Not Currently [...] Sign Reading Time Taken Comments Blood Pressure 124/70 10/12/2024 3:41 PM SENIOR SOFTWARE TEST ENGINEER Pulse 67 10/12/2024 3:41 PM SENIOR SOFTWARE TEST ENGINEER Temperature 37.5 C (99.5 F) 11/28/2023 3:27 PM CDT Respiratory Rate 17 11/28/2023 3:27 PM CDT Oxygen Saturation 97% 10/12/2024 3:41 PM SENIOR SOFTWARE TEST ENGINEER Inhaled Oxygen Concentration - - Weight 88.5 kg (195 lb 3.2 oz) 10/12/2024 3:41 P M SENIOR SOFTWARE TEST ENGINEER Height 175.3 cm (5' 9 ) 10/12/2024 3:41 PM SENIOR SOFTWARE TEST ENGINEER Body Mass Index 28.83 10/12/2024 3:41 PM SENIOR SOFTWARE TEST ENGINEER Plan of Treatment Upcoming Encounters Date Type Department Care Team (Late st Contact Info) Description 11/03/2024 10:15 AM SENIOR SOFTWARE TEST ENGINEER Appointment [facility] V[facility] Testing [address] [place] [address] [place] [address] [place] [address] 12/20/2024 10:30 AM CDT Office Visit [facility] - [address] [place] [address] Cindy Hill APRN [address] [place] [address] Health Maintenance Due Date Last Done Comments DIABETES ANNUAL FOOT EXAM 1980 DIABETES MICROALBUMIN ANNUAL SCREEN 1980 DTAP/TDAP/TD VACCINES (1 - Tdap) 1981 CERVICAL CANCER SCREENING 1992 BREAST CANCER SCREENING 2002 COLORECTAL SCREENING 2007 Colorectal Cancer Screening 2007 FIT-DNA Q 3 years 2007 FIT/FOBT Q 1 year 2007 Flex Sig/CT Colonography Q 5 years 2007 ZOSTER VACCINE (1 of 2) 2012 RSV VACCINE (60+ or ) (1 - Risk 60-74 years 1-dose series) 2022 DIABETES ANNUAL RETINAL EXAM 07/18/2023 07/18/2022 INFLUENZA VACCINE (#1) 2024 06/23/2022 COVID-19 Vaccine ( season) 2024 DIABETES HBA1C Q 6 MONTHS 05/29/2024 11/27/2023 Preventative Visit- Commercial 09/08/2024 LDL CHOLESTEROL ANNUAL 05/24/2025 05/24/2024, 2023 Medical Devices Implanted Type Area Memorial Adviser Device Identifier Shelf Expiration Date Model / Serial / Lot Clip Ligating Horizon Med Ti [id number] [place] [facility] [id number] Implanted:Qty : 1 on 08/16/2022 by Elinor Tran MD at [facility] Clip N/A: Chest TELEFLEX- WECK CLOSURE SYS 01/13/2027 [id number] / / [id number] Clip Ligating Horizon Red [id number] - Csc - [id number] Implanted:Qty : 1 on 08/16/2022 by Elinor Tran MD at [facility] Clip N/A: Chest [employer]LE[employer] INC 11/19/2026 [id number] / / [id number] Closure Perclose Proglide [id number] - [id number] Implanted:Qty : 1 on 11/27/2023 at [facility] Closure Device Right: Groin SUAZO- VASC DEVICE 08/07/2025 [id number] / / [id number] Hemostatic Surgifoam [id number] - [id number] Implanted:Qty : 1 on 08/16/2022 by Elinor Tran MD at [facility] Hemostatic N/A: Sternum [employer]- [employer] [id number] 01/23/20261974 / / [id number] Ring Annlplsty Physio Ii [id number] - [id number] Implanted:Qty : 1 on 08/16/2022 by Elinor Tran MD at [facility] Valve N/A: Heart [employer] [id number] 06/27/2026 [id number] / [id number] / Description:BR [id number] Procedures Procedure Name Priority Date/Time Associated Diagnosis Comments CBC WITHOUT DIFFERENTIAL Routine 10/13/2024 3:18 PM SENIOR SOFTWARE TEST ENGINEER Essential hypertension Coronary artery disease involving galena coronary artery of galena heart without angina pectoris Mixed hyperlipidemia S/P MVR (mitral valve repair) MAGNESIUM LEVEL Routine 10/13/2024 3:18 PM SENIOR SOFTWARE TEST ENGINEER Essential hypertension Coronary artery disease involving galena coronary artery of galena heart without angina pectoris Mixed hyperlipidemia S/P MVR (mitral valve repair) COMPREHENSIVE METABOLIC PANEL Routine 10/13/2024 3:18 PM SENIOR SOFTWARE TEST ENGINEER Essential hypertension Coronary artery disease involving galena coronary artery of galena heart without angina pectoris Mixed hyperlipidemia S/P MVR (mitral valve repair) TSH REFLEXIVE Routine 10/13/2024 3:18 PM SENIOR SOFTWARE TEST ENGINEER Essential hypertension Coronary artery disease involving galena coronary artery of galena heart without angina pectoris Mixed hyperlipidemia S/P MVR (mitral valve repair) IA ECG ROUTINE ECG W/LEAST 12 LDS W/I&R Routine 10/12/2024 4:00 PM SENIOR SOFTWARE TEST ENGINEER Essential hypertension Coronary artery disease involving galena coronary artery of galena heart without angina pectoris Mixed hyperlipidemia S/P MVR (mitral valve repair) BASIC METABOLIC PANEL Routine 09/21/2024 7:40 AM SENIOR SOFTWARE TEST ENGINEER Essential hypertension Coronary artery disease involving galena coronary artery of galena heart without angina pectoris Dilated cardiomyopathy (CMS/HCC) Chronic systolic CHF (congestive heart failure) (CMS/HCC) Mixed hyperlipidemia LIPID PANEL Routine 05/24/2024 3:40 PM CDT Chronic systolic CHF (congestive heart failure) (CMS/HCC) Dilated cardiomyopathy (CMS/HCC) Coronary artery disease involving galena coronary artery of galena heart without angina pectoris Essential hypertension HEMOGLOBIN A1C Routine 11/27/2023 10:55 AM CDT from Last 3 Months or Most Recently Relevant to Health Maintenance Results * TSH REFLEXIVE (10/13/2024 3:18 PM SENIOR SOFTWARE TEST ENGINEER) TSH 2.74 0.40 - 4.50 mIU/L [facility] Comment: FASTING:NO FASTING: NO Test Performed at: [facility] [address] [address] Magy Padilla MD Blood 10/13/2024 3:18 PM SENIOR SOFTWARE TEST ENGINEER 10/13/2024 3:19 PM SENIOR SOFTWARE TEST ENGINEER us Luisito Fernandez MD CHEMISTRY ORDERABLES Final Result [facility] [phone] [place] [address] * CBC WITHOUT DIFFERENTIAL (10/13/2024 3:18 PM SENIOR SOFTWARE TEST ENGINEER) WBC 6.0 3.8 - 10.8 Thousand/u L [facility] RBC 4.33 3.80 - 5.10 Million/uL [facility] HEMOGLOBIN 12.8 11.7 - 15.5 g/dL [facility] HEMATOCRIT 39.0 35.0 - 45.0 % [facility] MCV 90.1 80.0 - 100.0 fL [facility] MCH 29.6 27.0 - 33.0 pg [facility] MCHC 32.8 32.0 - 36.0 g/dL [facility] Comment: For adults, a slight decrease in the calculated MCHC value (in the range of 30 to 32 g/dL) is most likely not clinically significant; however, it should be interpreted with caution in correlation with other red cell parameters and the patient's clinical condition. RDW 12.5 11.0 - 15.0 % [facility] PLATELETS 255 140 - 400 Thousand/u L [facility] MPV 11.1 7.5 - 12.5 fL [facility] Comment: FASTING:NO FASTING: NO Test Performed at: [facility] [address] [place] [address] Magy Padilla MD Blood 10/13/2024 3:18 PM SENIOR SOFTWARE TEST ENGINEER 10/13/2024 3:19 PM SENIOR SOFTWARE TEST ENGINEER Luisito Fernandez MD HEMATOLOGY ORDERABLE S Final Result Performing Organization Address City/[facility] Co de Phone Number [facility] [phone] [facility] [address] * MAGNESIUM LEVEL (10/13/2024 3:18 PM SENIOR SOFTWARE TEST ENGINEER) Pathologist [facility] MAGNESIUM 2.2 1.5 - 2.5 mg/dL [facility] Comment: Test Performed at: [facility] [address] Magy Padilla MD Blood 10/13/2024 3:18 PM SENIOR SOFTWARE TEST ENGINEER 10/13/2024 3:19 PM SENIOR SOFTWARE TEST ENGINEER Luisito Fernandez MD CHEMISTRY ORDERABLES Final Result Performing Organization Address [facility] Co de Phone Number [facility] [phone] [facility] [address] * COMPREHENSIVE METABOLIC PANEL (10/13/2024 3:18 PM SENIOR SOFTWARE TEST ENGINEER) Pathologist [facility] GLUCOSE 103 65 - 139 mg/dL [facility] Comment: Non-fasting reference interval BUN 21 7 - 25 mg/dL [facility] CREATININE 0.95 0.50 - 1.05 mg/dL [facility] GFR 68 > OR = 60 mL/min/1. 73m2 [facility] BUN/CREAT RATIO SEE NOTE: 6 - 22 (calc) [facility] Comment: Not Reported: BUN and Creatinine are within reference range. SODIUM 140 135 - 146 mmol/L [facility] POTASSIUM 4.3 3.5 - 5.3 mmol/L [facility] CHLORIDE 103 98 - 110 mmol/L [facility] CO2 30 20 - 32 mmol/L [facility] CALCIUM 9.3 8.6 - 10.4 mg/dL [facility] TOTAL PROTEIN 6.1 6.1 - 8.1 g/dL [facility] ALBUMIN 4.2 3.6 - 5.1 g/dL [facility] GLOBULIN 1.9 1.9 - 3.7 g/dL (calc) [facility] ALBUMIN/GLOBULIN RATIO 2.2 1.0 - 2.5 (calc) [facility] BILIRUBIN TOTAL 0.3 0.2 - 1.2 mg/dL [facility] ALKALINE PHOSPHATASE 79 37 - 153 U/L [facility] AST 18 10 - 35 U/L [facility] ALT 18 6 - 29 U/L [facility] Comment: FASTING:NO FASTING: NO Test Performed at: [facility] [address] [place] [address] Magy Padilla MD Blood 10/13/2024 3:18 PM SENIOR SOFTWARE TEST ENGINEER 10/13/2024 3:19 PM SENIOR SOFTWARE TEST ENGINEER us Luisito Fernandez MD CHEMISTRY ORDERABLES Final Result Performing Organization Address [facility] Co de Phone Number [facility] [phone] [facility] [address] [place] [address] * IA ECG ROUTINE ECG W/LEAST 12 LDS W/I&R (10/12/2024 4:00 PM SENIOR SOFTWARE TEST ENGINEER) Narrative [facility] [address] [facility] - 10/12/2024 4:00 PM SENIOR SOFTWARE TEST ENGINEER Anneliese Cruz 10/12/2024 4:29 PM EKG Date/Time: 10/12/2024 4:00 PM Performed by: Luisito Fernandez MD Authorized by: Luisito Fernandez MD Procedure Note Anneliese Cruz - 10/12/2024 3:50 PM CST EKG Date/Time: 10/12/2024 4:00 PM Performed by: Luisito Fernandez MD Authorized by: Luisito Fernandez MD us Luisito Fernandez MD ECG ORDERABLES Edit ed Result - Final Performing Organization Address City/[facility]/ZIP Co de Phone Number [facility] [address] [facility] CLIA# [id number] [address] [place] [address] * (ABNORMAL) BASIC METABOLIC PANEL (09/21/2024 7:40 AM SENIOR SOFTWARE TEST ENGINEER) Pathologist [facility] Emergency Department GLUCOSE 119(H) 65 - 99 mg/dL [facility] Comment: Fasting reference interval For someone without known diabetes, a glucose value between 100 and 125 mg/dL is consistent with prediabetes and should be confirmed with a follow-up test. BUN 22 7 - 25 mg/dL [facility] CREATININE 1.13(H) 0.50 - 1.05 mg/dL [facility] GFR 55(L) > OR = 60 mL/min/1. 73m2 [facility] BUN/CREAT RATIO 19 6 - 22 (calc) [facility] SODIUM 140 135 - 146 mmol/L [facility] POTASSIUM 4.4 3.5 - 5.3 mmol/L [facility] CHLORIDE 103 98 - 110 mmol/L [facility] CO2 28 20 - 32 mmol/L [facility] Stewart CALCIUM 9.7 8.6 - 10.4 mg/dL [facility] Comment: Test Performed at: [facility] [address] [place] [address] Magy Padilla Blood 09/21/2024 7:40 AM SENIOR SOFTWARE TEST ENGINEER 09/21/2024 7:41 AM SENIOR SOFTWARE TEST ENGINEER Luisito Fernandez MD CHEMISTRY ORDERABLES Final Result [facility] [phone] [facility] [address] [place] [address] * (ABNORMAL) LIPID PANEL (05/24/2024 3:40 PM CDT) [facility] CHOLESTEROL 126 <200 mg/dL [facility] HDL 46(L) > OR = 50 mg/dL [facility] TRIGLYCERIDE 284(H) <150 mg/dL [facility] Comment: If a non-fasting specimen was collected, consider repeat triglyceride testing on a fasting specimen if clinically indicated. Mervin et al. J. of Clin. Lipidol. 2015;9:129-169. LDL CALCULATED 47 mg/dL (calc) [facility] Comment: Reference range: <100 Desirable range <100 mg/dL for primary prevention; <70 mg/dL for patients with CHD or diabetic patients with > or = 2 CHD risk factors. LDL-C is now calculated using the Rasta calculation, which is a validated novel method providing better accuracy than the Friedewald equation in the estimation of LDL-C. Beto KINGSTON et al. GIRISH. 2013;310(19): 8450-8218 (http://education.bettercodes.org/faq/PUU147) CHOL/HDL RATIO 2.7 <5.0 (calc) [facility] NON-HDL CHOLESTEROL 80 <130 mg/dL (calc) [facility] Comment: For patients with diabetes plus 1 major ASCVD risk factor, treating to a non-HDL-C goal of <100 mg/dL (LDL-C of <70 mg/dL) is considered a therapeutic option. Test Performed at: [facility] [address] [place] [address] Magy Padilla Blood 05/24/2024 3:40 PM CDT 05/24/2024 3:41 PM CDT Luisito Fernandez MD CHEMISTRY ORDERABLES Final Result [facility] [phone] [facility] [address] [place] [address] * (ABNORMAL) HEMOGLOBIN A1C (11/27/2023 10:55 AM CDT) HEMOGLOBIN A1C 5.7(H) <=5.6 % 11/27/2023 2:[address] [facility] EST. AVG GLUCOSE, A1C 117 mg/dL 11/27/2023 2:[address] [facility] [employer] [facility] Blood Venipuncture / Unknown 11/27/2023 10:55 AM CDT 11/27/2023 11:[address] [facility] - 11/27/2023 2:35 PM CDT HGB A1C INTERPRETATION NORMAL: <5.7% PRE-DIABETES: 5.7 - 6.4% DIABETES: 6.5% OR GREATER Elisabeth Peng MD CHEMISTRY ORDERABLES Final Resul t [facility] CLIA# [id number] [address] [place] [address] from Last 3 Months or Most Recently Relevant to Health Maintenance Insurance BCBS BLUE ACCESS/TRUE BLUE PPO RX [employer] Commercial Advance Directives For more information, please contact: [phone] Documents on File Type Date Recorded Patient Wound/Ostomy Nurse Expl anation Advance Directive POA 08/28/2022 7:27 AM Advance Directive POA * Full Code (Latest Code Status on File) Date Activated Date Inactivated Comments 11/27/2023 11:10 AM 11/28/2023 7:56 PM * Full Code Date Activated Date Inactivated Comments 08/16/2022 11:50 AM 08/22/2022 2:11 PM * Full Code Date Activated Date Inactivated Comments 08/16/2022 5:45 AM 08/16/2022 11:50 AM Care Teams Site Physician Relationship Specialty Start Date End Date Peter Arthur MD [address] [place] [id number] PCP - General Family Practice 05/25/19
--- OUTSIDE RECORDS SUMMARY | 2024-11-01 17:35 | XMS_ITS | Referral Summary ---
Author Organization [facility] [employer] Address [address] [place] [address] Care Team Providers Care Insurance Office Supervisor Name Role Phone Peter Arthur MD Primary Care Provider [phone] Source Comments [facility] [employer],non-owned Affiliates and Associated Physician Practices is amultiple site organization consisting of ambulatory clinics and hospital sitesin [place], [place], [place] and [place]. This disclosure is being madepursuant to the Care Everywhere program and may not contain all information available regarding this patient. Last updated 18.[facility] Allergies No known active allergies Medications * [...] mg by mouth daily before breakfast Active Arxvopfzw-Mvlzbem-Nfr ic Acid (MAGNEBIND 400 PO) Active Cholecalciferol [...] 03/28/2019 12:19 PM CDT Plan of Treatment Not on file Care Teams Insurance Office Supervisor Relationship Specialty Start Date End Date Peter Arthur MD PCP - General Family Medicine 03/28/19
[2024-11-01 18:10] LABS: NT Pro B Type Natriuretic Pept 280 pg/mL (19.9-100); Troponin I < 0.012 ng/mL (0.000-0.034)
[2024-11-01 21:38] LABS: Add Urine Microscopic? YES; Appearance Urine Clear (Clear); Bacteria Urine 2+ /hpf; Bilirubin Urine Negative (Negative); Blood Urine Trace (Negative); Color Urine Yellow (Yellow); Glucose Urine UA Negative (Negative); Ketones Urine 2+ mg/dL (Negative); Leukocyte Esterase Ur 2+ LEU/UL (Negative); Nitrate Urine Positive (Negative); Non Pathogenic Casts 0-2; Protein Urine Trace mg/dL (Negative); RBC Urine 0-2 /hpf (0-2); Specific Grav Ur 1.022 (1.001-1.035); Squamous Epithelial Cell Urine Occasional /hpf (Few); Urobilinogen Urine 0.2 mg/dL (<2.0); WBC Urine 51-100 /hpf (0-3)
[2024-11-01 22:06] VITALS: BP 109/76; PULSE 87; RESP 15; O2SAT 98
[2024-11-01 22:10] VITALS: PULSE 85
[2024-11-01] MEDS: methylPREDNISolone SOD SUCC 125 MG VIAL IV PUSH (22:20)
--- OUTSIDE RECORDS SUMMARY | 2024-11-01 22:27 | XMS_ITS | Clinical Summary ---
Author Organization [facility] [employer] Address [address] [place] [address] Care Team Providers Care Grain Buyer Name Role Phone Peter Arthur MD Primary Care Provider [phone] Source Comments [facility],non-owned Affiliates and Associated Physician Practices is amultiple site organization consisting of ambulatory clinics and hospital sitesin [place], [place], [place] and [place]. This disclosure is being madepursuant to the Care Everywhere program and may not contain all information available regarding this patient. Last updated 18.[facility] Allergies No known active allergies Medications * [...] mg by mouth daily before breakfast Active Yhimcnmwv-Whlaepk-Ahd ic Acid (MAGNEBIND 400 PO) Active Cholecalciferol [...] age to complete this topic Care Teams Grain Buyer Relationship Specialty Start Date End Date Peter Arthur MD PCP - General Family Medicine 03/28/19
--- OUTSIDE RECORDS SUMMARY | 2024-11-01 22:27 | XMS_ITS | Referral Summary ---
Author Organization [facility] [employer] Address [address] [place] [address] Care Team Providers Care Applications Systems Analyst Name Role Phone Peter Arthur MD Primary Care Provider [phone] Source Comments [facility] [employer],non-owned Affiliates and Associated Physician Practices is amultiple site organization consisting of ambulatory clinics and hospital sitesin [place], [place], [place] and [place]. This disclosure is being madepursuant to the Care Everywhere program and may not contain all information available regarding this patient. Last updated 18.[facility] [employer] Allergies No known active allergies Medications * [...] mg by mouth daily before breakfast Active Msuwrxwoo-Gpesiph-Zpv ic Acid (MAGNEBIND 400 PO) Active Cholecalciferol [...] of Treatment Not on file Care Teams Applications Systems Analyst Relationship Specialty Start Date End Date Peter Arthur MD PCP - General Family Medicine 03/28/19
--- OUTSIDE RECORDS SUMMARY | 2024-11-01 22:27 | XMS_ITS | Patient Health Summary ---
Author Organization [facility] Address [address] [place] [address] Care Team Providers Care Laborer Construction Or Leak Gang Name Role Phone Peter Arthur MD Primary Care Provider [phone] Note from [facility],non-owned Affiliates and Associated Physician Practices is amultiple site organization consisting of ambulatory clinics and hospital sitesin [place], [place], [place] and [place]. This disclosure is being madepursuant to the Care Everywhere program and may not contain all information available regarding this patient. Last updated 18.[facility] [place] Allergies No known active allergies Medications * [...] mg by mouth daily before breakfast * Yyzoypbvu-Cqcsqrt-Ojigt Acid (MAGNEBIND 400 PO) * Cholecalciferol (VITAMIN [...] Resulting Agency Comment Lab Testing performed at: [facility] [address] [id number] Stephanie Schultz [place] HISTORY PROFESSOR-[facility] - MICROBIOL OGY ORDERABLES [facility] ACCOUNT [place] [address] [place] [address] * URINALYSIS AUTO - POINT OF CARE (AMB) STL (03/28/2019) Clarity UA POCT cloudy Color UA POCT straw Leukocyte UA 125 Negative Nitrite UA POCT pos Negative Urobilinogen UA 0.2 0.1 - 1.0 Protein UA POCT 15 Negative pH UA 5.0 5.0 - 8.0 pH units Blood UA +++ Negative Specific [place] UA POCT 1.015 1.002 - 1.030 Ketone UA neg Negative Bilirubin UA POCT neg Negative Glucose UA neg Negative Expiration Date [id number] Lot # [id number] QC Verified Yes Yes Urine URINE / Unknown 03/28/2019 Stephanie Lorna Schultz APRN-[facility] - POINT OF CARE ORDERABLES Care Teams Laborer Construction Or Leak Gang Relationship Specialty Start Date End Date Peter Arthur MD PCP - General Family Medicine 03/28/19
--- OUTSIDE RECORDS SUMMARY | 2024-11-01 22:27 | XMS_ITS | Encounter Summary ---
Author Organization [facility] Address [address] [place] [address] Care Team Providers Care Slot Technician Name Role Phone Peter Arthur MD Primary Care Provider [phone] Encounter Details Date Type Department Care Team (Late st Contact Info) Description 10/15/2024 Results Follow-Up [facility] Heart and Vascular - [address] [facility] [address] [address] [facility] [address] [place] [address] [place] [address] [place] [address] TSH REFLEXIVE, COMPREHENSIVE METABOLIC PANEL, [...] st Contact Info) Description 11/03/2024 10:15 AM REVIEW COORDINATOR Appointment [facility] Heart and Vascular Testing [address] [place] [address] [place] [address] [place] [address] 12/20/2024 10:30 AM CDT Office Visit [facility] Heart and Vascular - [address] [place] [address] documented as of this encounter Visit Diagnoses Not on filedocumented in this encounter Care Teams Slot Technician Relationship Specialty Start Date End Date Peter Arthur MD [address] [place] [address] PCP - General Family Practice 05/25/19 documented as of this encounter
--- OUTSIDE RECORDS SUMMARY | 2024-11-01 22:27 | XMS_ITS | Clinical Summary ---
Author Organization [facility] [address] [place] [address] Address [address] [place] [address] Care Team Providers Care Taxation Agent Name Role Phone Peter Arthur MD Primary Care Provider [phone] Allergies Active Allergy Reactions Criticality Noted Date [...] (congestive heart failure) (CMS/HCC),Coronary artery disease involving [place] coronary artery of [place] heart without angina pectoris,Essential hypertension,Mixed hyperlipidemia Take 1 Tablet (25 mg) by mouth daily. 90 Tablet 3 4 Active magnesium oxide (MAG-OX) 400 mg (241.3 mg magnesium) tabletIndications:D ilated cardiomyopathy (CMS/HCC),Chronic systolic CHF (congestive heart failure) (CMS/HCC),Coronary artery disease involving [place] coronary artery of [place] heart without angina pectoris,Essential hypertension,Mixed hyperlipidemia Take 1 Tablet (400 mg) by mouth daily at bedtime. 90 Tablet 3 4 Active sacubitriL-valsarta n (ENTRESTO) 49-51 mg TabletIndications:E ssential hypertension,Mendes ry artery disease involving [place] coronary artery of [place] heart without angina pectoris,Dilated cardiomyopathy (CMS/HCC),Chronic systolic CHF (congestive heart failure) (CMS/HCC),Mixed hyperlipidemia Take 1 Tablet by mouth 2 times daily. 180 Tablet 3 4 Active Active Problems Patient Care Coordination No te Formatting of this note migh t be different from the original. Electrical Laboratory Technician- Luisito Fernandez MD [facility] - Heart and Vascular Office Problem [...] ventilation 08/16/2022 Coronary artery disease invo lving [place] coronary artery of [place] heart without angina pectoris 11/03/2020 Essential hypertension 11/03/2020 High cholesterol 11/03/2020 Encounters Date Type Department Care Team Description 10/26/2024 External Device Data STL ABSTRACTION Provider, Abstract 10/15/2024 Results Follow-Up [facility] Heart and Vascular - [address] [address] [facility] [address] [place] [address] Luisito Fernandez MD TSH REFLEXIVE, COMPREHENSIVE METABOLIC PANEL, MAGNESIUM LEVEL, CBC WITHOUT DIFFERENTIAL 10/12/2024 4:00 PM MOTOR AND CHASSIS INSPECTOR Office Visit [facility] Heart and Vascular - [address] [facility] [address] [place] [address] Luisito Fernandez MD Essential hypertension (Primary Dx); Coronary artery disease involving [place] coronary artery of [place] heart without angina pectoris; Mixed hyperlipidemia; S/P MVR (mitral valve repair) 09/06/2024 Telephone [facility] Heart and Vascular - [address] [facility] [address] [place] [address] Luisito Fernandez MD pt call 08/10/2024 External Device Data STL ABSTRACTION Provider, Abstract from Last 3 Months Immunizations Immunization Administration Dates Next Due (@Pay ANATOLY)(12 YR UP PRIMA RY SERIES) COVID-19 [...] Comments Blood Pressure 124/70 10/12/2024 3:41 PM MOTOR AND CHASSIS INSPECTOR Pulse 67 10/12/2024 3:41 PM MOTOR AND CHASSIS INSPECTOR Temperature 37.5 C (99.5 F) 11/28/2023 3:27 PM CDT Respiratory Rate 17 11/28/2023 3:27 PM CDT Oxygen Saturation 97% 10/12/2024 3:41 PM MOTOR AND CHASSIS INSPECTOR Inhaled Oxygen Concentration - - Weight 88.5 kg (195 lb 3.2 oz) 10/12/2024 3:41 P M MOTOR AND CHASSIS INSPECTOR Height 175.3 cm (5' 9 ) 10/12/2024 3:41 PM MOTOR AND CHASSIS INSPECTOR Body Mass Index 28.83 10/12/2024 3:41 PM MOTOR AND CHASSIS INSPECTOR Plan of Treatment Upcoming Encounters Date Type Department Care Team (Late st Contact Info) Description 11/03/2024 10:15 AM MOTOR AND CHASSIS INSPECTOR Appointment [facility] Heart and Vascular Testing [address] [place] [address] [place] [address] [place] [place] [address] 12/20/2024 10:30 AM CDT Office Visit [facility] Heart and Vascular - [address] [place] [address] Health Maintenance Due Date Last Done Comments [...] INFLUENZA VACCINE (#1) 2024 06/23/2022 COVID-19 Vaccine (2 - season) 2024 DIABETES HBA1C Q 6 MONTHS 05/29/2024 11/27/2023 Preventative Visit- Commercial 09/08/2024 LDL CHOLESTEROL ANNUAL 05/24/2025 05/24/2024, 2023 Medical Devices Implanted Type Area Switch Inspector Device Identifier Shelf Expiration Date Model / Serial / Lot Clip Ligating Horizon Med Ti [id number] - Csc - [id number] Implanted:Qty : 1 on 08/16/2022 by Elinor Tran MD at [facility] Clip N/A: Chest TELEFLEX- WECK CLOSURE SYS 01/13/2027 [id number] / / [id number] Clip Ligating Horizon Red [id number] - Csc - [id number] Implanted:Qty : 1 on 08/16/2022 by Elinor Tran MD at [facility] Clip N/A: Chest TELE[employer]LEX INC 11/19/2026 [id number] / / [id number] Closure Perclose Proglide 83285 - [id number] Implanted:Qty : 1 on 11/27/2023 at [facility] Closure Device Right: Groin SUAZO- VASC DEVICE 08/07/2025 [id number] / / [id number] Hemostatic Surgifoam [id number] [id number] - [id number] Implanted:Qty : 1 on 08/16/2022 by Elinor Tran MD at [facility] Hemostatic N/A: Sternum [employer]- [employer] [id number] 01/23/20261974 / / [id number] Ring Annlplsty Physio Ii [id number] - [id number] Implanted:Qty : 1 on 08/16/2022 by Elinor Tran MD at [facility] Valve N/A: Heart [employer] [id number] 06/27/2026 [id number] / [id number] / Description:BR [id number] Procedures Procedure Name Priority Date/Time Associated Diagnosis Comments CBC WITHOUT DIFFERENTIAL Routine 10/13/2024 3:18 PM MOTOR AND CHASSIS INSPECTOR Essential hypertension Coronary artery disease involving [place] coronary artery of [place] heart without angina pectoris Mixed hyperlipidemia S/P MVR (mitral valve repair) MAGNESIUM LEVEL Routine 10/13/2024 3:18 PM MOTOR AND CHASSIS INSPECTOR Essential hypertension Coronary artery disease involving [place] coronary artery of [place] heart without angina pectoris Mixed hyperlipidemia S/P MVR (mitral valve repair) COMPREHENSIVE METABOLIC PANEL Routine 10/13/2024 3:18 PM MOTOR AND CHASSIS INSPECTOR Essential hypertension Coronary artery disease involving [place] coronary artery of [place] heart without angina pectoris Mixed hyperlipidemia S/P MVR (mitral valve repair) TSH REFLEXIVE Routine 10/13/2024 3:18 PM MOTOR AND CHASSIS INSPECTOR Essential hypertension Coronary artery disease involving [place] coronary artery of [place] heart without angina pectoris Mixed hyperlipidemia S/P MVR (mitral valve repair) [place] ECG ROUTINE ECG W/LEAST 12 LDS W/I&R Routine 10/12/2024 4:00 PM MOTOR AND CHASSIS INSPECTOR Essential hypertension Coronary artery disease involving [place] coronary artery of [place] heart without angina pectoris Mixed hyperlipidemia S/P MVR (mitral valve repair) BASIC METABOLIC PANEL Routine 09/21/2024 7:40 AM MOTOR AND CHASSIS INSPECTOR Essential hypertension Coronary artery disease involving [place] coronary artery of [place] heart without angina pectoris Dilated cardiomyopathy (CMS/HCC) Chronic systolic CHF (congestive heart failure) (CMS/HCC) Mixed hyperlipidemia LIPID PANEL Routine 05/24/2024 3:40 PM CDT Chronic systolic CHF (congestive heart failure) (CMS/HCC) Dilated cardiomyopathy (CMS/HCC) Coronary artery disease involving [place] coronary artery of [place] heart without angina pectoris Essential hypertension HEMOGLOBIN A1C Routine 11/27/2023 10:55 AM CDT from Last 3 Months or Most Recently Relevant to Health Maintenance Results * TSH REFLEXIVE (10/13/2024 3:18 PM MOTOR AND CHASSIS INSPECTOR) TSH 2.74 0.40 - 4.50 mIU/L [facility] Comment: FASTING:NO FASTING: NO Test Performed at: [facility] [address] [place] [address] Magy Padilla MD Blood 10/13/2024 3:18 PM MOTOR AND CHASSIS INSPECTOR 10/13/2024 3:19 PM MOTOR AND CHASSIS INSPECTOR us Luisito Fernandez MD CHEMISTRY ORDERABLES Final Result Performing Organization Address City/[facility]/ZIP Co de Phone Number [facility] [phone] [facility] [address] [place] [address] * CBC WITHOUT DIFFERENTIAL (10/13/2024 3:18 PM MOTOR AND CHASSIS INSPECTOR) WBC 6.0 3.8 - 10.8 Thousand/u L [...] Comment: FASTING:NO FASTING: NO Test Performed at: [facility] [address] [place] [address] Magy Padilla MD Blood 10/13/2024 3:18 PM MOTOR AND CHASSIS INSPECTOR 10/13/2024 3:19 PM MOTOR AND CHASSIS INSPECTOR us Luisito Fernandez MD HEMATOLOGY ORDERABLE S Final Result Performing Organization Address [facility]/ZIP Co de Phone Number [facility] [phone] [facility] [address] * MAGNESIUM LEVEL (10/13/2024 3:18 PM MOTOR AND CHASSIS INSPECTOR) Pathologist [facility] MAGNESIUM 2.2 1.5 - 2.5 mg/dL [facility] Comment: Test Performed at: [facility] [address] [place] [address] Magy Padilla MD Blood 10/13/2024 3:18 PM MOTOR AND CHASSIS INSPECTOR 10/13/2024 3:19 PM MOTOR AND CHASSIS INSPECTOR us Luisito Fernandez MD CHEMISTRY ORDERABLES Final Result [facility] [phone] [facility] [address] * COMPREHENSIVE METABOLIC PANEL (10/13/2024 3:18 PM MOTOR AND CHASSIS INSPECTOR) Pathologist [facility] GLUCOSE 103 65 - 139 mg/dL [facility] [...] Comment: FASTING:NO FASTING: NO Test Performed at: [facility] [address] [place] [address] Magy Padilla MD Blood 10/13/2024 3:18 PM MOTOR AND CHASSIS INSPECTOR 10/13/2024 3:19 PM MOTOR AND CHASSIS INSPECTOR us Luisito Fernandez MD CHEMISTRY ORDERABLES Final Result Performing Organization Address [facility] Co de Phone Number [facility] [phone] [facility] [address] [place] [address] * [place] ECG ROUTINE ECG W/LEAST 12 LDS W/I&R (10/12/2024 4:00 PM MOTOR AND CHASSIS INSPECTOR) Narrative [facility] [address] [facility] - 10/12/2024 4:00 PM MOTOR AND CHASSIS INSPECTOR Anneliese Cruz 10/12/2024 4:29 PM EKG Date/Time: 10/12/2024 4:00 PM Performed by: Luisito Fernandez MD Authorized by: Luisito Fernandez MD Procedure Note Anneliese Cruz - 10/12/2024 3:50 PM CST EKG Date/Time: 10/12/2024 4:00 PM Performed by: Luisito Fernandez MD Authorized by: Luisito Fernandez MD us Luisito Fernandez MD ECG ORDERABLES Edit ed Result - Final Performing Organization Address City/[facility]/ZIP Co de Phone Number [facility] [address] [facility] CLIA# [id number] [address] [place] [address] * (ABNORMAL) BASIC METABOLIC PANEL (09/21/2024 7:40 AM MOTOR AND CHASSIS INSPECTOR) GLUCOSE 119(H) 65 - 99 mg/dL [facility] Comment: Fasting reference interval For someone without known diabetes, a glucose value between 100 and 125 mg/dL is consistent with prediabetes and should be confirmed with a follow-up test. BUN 22 7 - 25 mg/dL [facility] CREATININE 1.13(H) 0.50 - 1.05 mg/dL [facility] GFR 55(L) > OR = 60 mL/min/1. 73m2 [facility] BUN/CREAT RATIO 19 6 - 22 (calc) [facility] SODIUM 140 135 - 146 mmol/L [facility] POTASSIUM 4.4 3.5 - 5.3 mmol/L [facility] CHLORIDE 103 98 - 110 mmol/L [facility] CO2 28 20 - 32 mmol/L [facility] CALCIUM 9.7 8.6 - 10.4 mg/dL [facility] Comment: Test Performed at: [facility] [address] [place] [address] [facility] C[facility] Blood 09/21/2024 7:40 AM MOTOR AND CHASSIS INSPECTOR 09/21/2024 7:41 AM MOTOR AND CHASSIS INSPECTOR Luisito Fernandez MD CHEMISTRY ORDERABLES Final Result [facility] [phone] [place] [address] [place] [address] * (ABNORMAL) LIPID PANEL (05/24/2024 3:40 PM CDT) [facility] CHOLESTEROL 126 <200 mg/dL [facility] jeff William HDL 46(L) > OR = 50 mg/dL [facility] TRIGLYCERIDE 284(H) <150 mg/dL [facility] Comment: If a non-fasting specimen was collected, consider repeat triglyceride testing on a fasting specimen if clinically indicated. Mervin et al. J. of Clin. Lipidol. 2015;9:129-169. LDL CALCULATED 47 mg/dL (calc) Jerri AcorioLorna William Comment: Reference range: <100 Desirable range <100 mg/dL for primary prevention; <70 mg/dL for patients with CHD or diabetic patients with > or = 2 CHD risk factors. LDL-C is now calculated using the Rasta calculation, which is a validated novel method providing better accuracy than the Friedewald equation in the estimation of LDL-C. Beto KINGSTON et al. GIRISH. 2013;310(19): 4613-1121 (http://education.[employer]/faq/DAR463) CHOL/HDL RATIO 2.7 <5.0 (calc) [facility] NON-HDL CHOLESTEROL 80 <130 mg/dL (calc) [facility] Comment: For patients with diabetes plus 1 major ASCVD risk factor, treating to a non-HDL-C goal of <100 mg/dL (LDL-C of <70 mg/dL) is considered a therapeutic option. Test Performed at: [place] [address] [place] [address] Magy Padilla Blood 05/24/2024 3:40 PM CDT 05/24/2024 3:41 PM CDT Luisito Fernandez MD CHEMISTRY ORDERABLES Final Result [facility] [phone] [place] [address] [place] [address] * (ABNORMAL) HEMOGLOBIN A1C (11/27/2023 10:55 AM CDT) HEMOGLOBIN A1C 5.7(H) <=5.6 % 11/27/2023 2:35 PM CDT [facility] EST. AVG GLUCOSE, A1C 117 mg/dL 11/27/2023 2:35 PM CDT [facility] Blood Venipuncture / Unknown 11/27/2023 10:55 AM CDT 11/27/2023 11:10 AM CDT Narrative [facility] - 11/27/2023 2:35 PM CDT HGB A1C INTERPRETATION NORMAL: <5.7% PRE-DIABETES: 5.7 - 6.4% DIABETES: 6.5% OR GREATER Elisabeth Peng MD CHEMISTRY ORDERABLES Final Resul t [facility] CLIA# [id number] [address] [place] [address] from Last 3 Months or Most Recently Relevant to Health Maintenance Insurance BCBS BLUE ACCESS/TRUE BLUE PPO RX [employer] Commercial Advance Directives For more information, please contact: [phone] Documents on File Type Date Recorded 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
[2024-11-01 22:39] VITALS: RESP 24
[2024-11-01] MEDS: IPRATROPIUM 0.5 MG/ALBUTEROL SULFATE 2.5 MG AMPUL.NEB 3 ML INHALATION (22:39)
[2024-11-01] MEDS: CEPHALEXIN 500 MG CAPSULE PO (22:44)
[2024-11-01 23:27] VITALS: BP 119/77; PULSE 87; RESP 18; TEMP 37.1; O2SAT 99
== END 2024-11-01 23:28 | disposition home or self-care (01) ==
PROVIDERS: Physician Assistant; Emergency Provider Physician Assistant; PCP Family Medicine
DX: J20.9 Acute bronchitis, unspecified (principal); N39.0 Urinary tract infection, site not specified; Z20.822 Contact with and (suspected) exposure to COVID-19; I50.9 Heart failure, unspecified; I25.10 Atherosclerotic heart disease of native coronary artery without angina pectoris; I51.81 Takotsubo syndrome; I34.0 Nonrheumatic mitral (valve) insufficiency; I25.2 Old myocardial infarction; E11.9 Type 2 diabetes mellitus without complications; E53.8 Deficiency of other specified B group vitamins; E66.9 Obesity, unspecified; Z68.27 Body mass index [BMI] 27.0-27.9, adult; E78.2 Mixed hyperlipidemia; K58.0 Irritable bowel syndrome with diarrhea; K21.9 Gastro-esophageal reflux disease without esophagitis; F32.A Depression, unspecified; F41.9 Anxiety disorder, unspecified; Z86.16 Personal history of COVID-19; Z87.891 Personal history of nicotine dependence; Z79.82 Long term (current) use of aspirin; Z79.899 Other long term (current) drug therapy; Z79.84 Long term (current) use of oral hypoglycemic drugs
CPT/HCPCS: 36415; 71046; 80053; 81001; 83690; 83880; 84484; 85025; 85380; 85610; 85730; 87086; 87186; 87637; 93005; 94640; 96374; 99284; A9270; J2919